=== PATIENT | female | born 1990 | race Caucasian/White ===

== ENCOUNTER 2017-09-05 07:09 | Day surgery (SDC) | payer OTHER ==
[2017-09-05] VITALS (10 sets, daily range): BP systolic 111–133; BP diastolic 59–73; PULSE 63–102; RESP 14–20; Ht 167.6 cm; Wt 73.0 kg
[~2017-09-05] VITALS: Ht 167.6 cm; Wt 73.0 kg
[~2017-09-05 07:09] MED LIST: ALBU18HF INHALATION; CEFAZOLIN 1 GM INJ ONE; CEFAZOLIN 2 GM/50 ML (PMX) 50 ML IVPB SCH; PRED20TA PO; SOD CHLORIDE 0.9% 1,000 ML IV SCH
[2017-09-05] MEDS ORDERED: ROCURONIUM 50 MG INJ ONE (08:19)
[2017-09-05] MEDS ORDERED: NEOSTIGMINE 3 MG/3 ML SYRINGE ONE (08:19)
[2017-09-05] MEDS ORDERED: FENTAnyl 50 MCG/ML VIAL ONE (08:19)
[2017-09-05] MEDS ORDERED: GLYCOPYRROLATE 0.4 MG INJ ONE (08:19)
[2017-09-05] MEDS ORDERED: MIDAZOLAM 1 MG/ML 2 ML INJ ONE (08:19)
[2017-09-05] MEDS ORDERED: DEXAMETHASONE 4 MG/ML 1 ML INJ ONE (08:19)
[2017-09-05] MEDS ORDERED: LIDOCAINE 2% (SDV) 5 ML INJ ONE (08:19)
[2017-09-05] MEDS ORDERED: PROPOFOL 20 ML ONE (08:19)
[2017-09-05] MEDS ORDERED: ONDANSETRON 4 MG INJ ONE (08:20)
[2017-09-05 08:23] LABS: BASOPHILS % 0.6 % (0.0-2.0); EOSINOPHILS # 0.1 10^3/ul (0.0-0.5); EOSINOPHILS % 1.9 % (0.0-7.0); HEMATOCRIT 39.4 % (37.0-47.0); HEMOGLOBIN 13.2 g/dl (12.0-16.0); LYMPHOCYTES # 2.1 10^3/ul (0.8-2.9); LYMPHOCYTES % 32.4 % (15.0-51.0); MEAN CORPUSCULAR HEMOGLOBIN 29.3 pg (29.0-33.0); MEAN CORPUSCULAR HGB CONC 33.5 g/dl (32.0-37.0); MEAN CORPUSCULAR VOLUME 87.6 fl (82.0-101.0); MEAN PLATELET VOLUME 11.5 fl (7.4-10.4); MONOCYTE # 0.7 10^3/ul (0.3-0.9); MONOCYTES % 10.5 % (0.0-11.0); NEUTROPHIL # 3.5 10^3/ul (1.6-7.5); NEUTROPHILS % 54.4 % (39.0-77.0); PLATELET COUNT 226 10^3/UL (140-415); RED CELL DISTRIBUTION WIDTH 13.4 % (11.5-14.5); WHITE BLOOD COUNT 6.4 10^3/ul (4.8-10.8)
[2017-09-05] MEDS ORDERED: SUGAMMADEX SODIUM 200 MG/2 ML VIAL IV ONE (08:23)
[2017-09-05] MEDS ORDERED: MIDAZOLAM 1 MG/ML 2 ML INJ IV PRN (08:30)
[2017-09-05] MEDS ORDERED: FENTAnyl 50 MCG/ML VIAL IV PRN (08:30)
[2017-09-05] MEDS ORDERED: HYDROmorphONE (0.2 MG/ML) 10ML SYG IV PRN ×3 (08:30)
[2017-09-05] MEDS ORDERED: ATROPINE 1 MG/10 ML SYRINGE IV PRN (08:30)
[2017-09-05] MEDS ORDERED: DIPHENHYDRAMINE 50 MG INJ IV PRN (08:30)
[2017-09-05] MEDS ORDERED: OXYCODONE/ACETAMINOPHEN (5/325) TAB PO PRN ×2 (08:30)
[2017-09-05] MEDS ORDERED: ONDANSETRON 4 MG INJ IV PRN (08:30)
[2017-09-05] MEDS ORDERED: EPHEDrine SULFATE 50 MG/5 ML SYG IV PRN (08:30)
[2017-09-05] MEDS ORDERED: LABETALOL HCL 20MG INJ IV PRN (08:30)
[2017-09-05] MEDS ORDERED: morphine (1 MG/ML) 10ML SYRINGE IV PRN ×3 (08:30)
[2017-09-05] MEDS ORDERED: MEPERIDINE 25 MG INJ IV PRN (08:30)
[2017-09-05] MEDS ORDERED: hydrALAzine 20 MG INJ IV PRN (08:30)
[2017-09-05 08:40] LABS: INR 0.97; PROTIME 12.9 Sec (12.2-14.2)
[2017-09-05 08:41] LABS: PARTIAL THROMBOPLASTIN TIME 32.2 Sec (25.0-35.0)
[2017-09-05 08:45] LABS: ALBUMIN 4.5 g/dl (3.3-4.9); ALBUMIN/GLOBULIN RATIO 1.25; BILIRUBIN,INDIRECT 0.2 mg/dl (0-1.1); BILIRUBIN,TOTAL 0.2 mg/dl (0.2-1.3); CALCIUM 8.9 mg/dl (8.4-10.2); CREATININE 0.76 mg/dl (0.44-1.00); POTASSIUM 4.2 mmol/L (3.5-5.1); TOTAL PROTEIN 8.1 g/dl (6.1-8.1)
[2017-09-05] MEDS ORDERED: BUPIVACAINE 0.5%/EPI (SDV) 30 ML INJ ONE (09:07)
[2017-09-05] MEDS ORDERED: EPHEDrine SULFATE 50 MG/5 ML SYG ONE (10:47)
--- NOTE | 2017-09-05 10:52 | SIPON ---
Date/Time of Note Date/Time of Note DATE: 09/05/17 TIME: 10:50 Operative Report Preoperative Diagnosis Large fibroadenoma left breast Postoperative Diagnosis Same Operation/Procedure Performed Left partial mastectomy Surgeon see signature line insurance underwriting assistant Dr Garnica Anesthesia: general Estimated blood loss: 10 - 50 ml's Transfusion Required none Specimen Left breast mass Grafts/Implants none Complications none RUI CHAMBERLAIN MD Sep 05, 2017 10:52
[2017-09-05] MEDS ORDERED: HYDROCODONE/APAP (7.5/325) TAB PO PRN (11:00)
[2017-09-05] MEDS: FENTAnyl 50 MCG/ML VIAL IV PRN ×2 (11:11→11:18)
--- NOTE | 2017-09-05 12:07 | OPR ---
DATE OF OPERATION: 09/05/2017 PREOPERATIVE DIAGNOSIS: Large fibroadenoma, left breast. POSTOPERATIVE DIAGNOSIS: Large fibroadenoma, left breast. PROCEDURE: Left partial mastectomy with resection of large fibroadenoma. ANESTHESIA: General. ANESTHESIOLOGIST: Earl Sierra MD WELT INSOLE CHANNELER: Dr. Garnica INDICATIONS FOR PROCEDURE: The patient is a 27-year-old female who presented with an enlarging mass at approximately the 12 to 2 o'clock location of the left breast adjacent to the nipple-areolar bor rex. Core biopsy confirmed fibroadenoma. She requested excision. She consented and was scheduled for surgery. DESCRIPTION OF PROCEDURE: The patient was brought to the operating theater, placed under general an esthesia. The left breast was prepped and draped in usual sterile fashion. A periareolar incision was made from approximately the 11 o'clock location to the 3 o'clock location. Subcutaneous tissue was dissected with cautery. The large mass was slightly removed from the nipple-areolar border a di stance approximately 2 to 3 cm. Therefore, dissection proceeded in the direction of the mass. The m ass was identified, it was multi-lobulated. With a gloved finger, it was enucleated, elevated and t ransected. It was removed and sent for permanent pathologic analysis. The wound was irrigated. Mi nimal bleeding was controlled with cautery. The skin incision was then reapproximated with 4-0 Vicr yl suture in subcuticular fashion and Dermabond was applied. Patient tolerated procedure well. Est imated blood loss 20 mL. There were no complications and the patient was transported in stable cond ition to the recovery room where circumferential compression dressing was applied. Dictated By: RUI RODRÍGUEZ/MARITZA Conf#: [id number] DID#: [id number]
== END 2017-09-05 12:45 | disposition home or self-care (01) ==
LOC: SDS 07:09
PROVIDERS: ATTEND Surgery Surgical Oncology
DX: D24.2 Benign neoplasm of left breast (principal)
CPT/HCPCS: 19120; 80053; 84703; 85025; 85610; 85730; 88307; J0690; J1100; J2250; J2405; J3010; Z7512; Z7610; J2710

== ENCOUNTER 2017-09-14 08:18 | Day surgery (SDC) | payer OTHER ==
[2017-09-14] VITALS (13 sets, daily range): BP systolic 98–126; BP diastolic 48–79; PULSE 60–90; RESP 13–22; Ht 167.6 cm; Wt 72.0 kg
[~2017-09-14] VITALS: Ht 167.6 cm; Wt 72.0 kg
--- NOTE | 2017-09-14 05:50 | PREOPHP ---
DATE OF ADMISSION: 09/14/2017 HISTORY OF PRESENT ILLNESS: A 27-year-old patient, who is going to be admitted for diagnostic arthroscopy of right knee, partial meniscectomy, possibly repair , plica band release, release, application of Dwyer dressing. This patient has been experiencing right knee pain for quite a while. Conservative treatment resulted in limited benefit to the patient, and patient has requested surgical intervention. PAST MEDICAL HISTORY: Unremarkable and noncontributory. MEDICATIONS: 1. Has been Sulindac. 2. Vitamin D3. 3. Postop, given ibuprofen and 4. Bactrim. PHYSICAL EXAMINATION: SKIN: Within normal limits. EENT: PERRLA. CARDIOVASCULAR: Normal sinus rhythm. S1, S2 normal. No murmur. No JVD. No peripheral edema. LUNGS: Clear. ABDOMEN: Soft, scaphoid. No organomegaly. No mass. Bowel sounds present. GENITOURINARY AND RECTAL: Not done and not pertinent to this admission. MUSCULOSKELETAL: Head and neck unremarkable. Upper extremities normal with normal neurological examination. Spine clear. Both lower extermities were normal except for right knee. There is a couple degrees of recurvatum present in both knees with minimal atrophy. Range of motion is symmetrical. There is marked tenderness over the medial, as well as the lateral tibiofemoral joint line in the right knee. There is tenderness over the patellofemoral joint line. Excursion of the patella is normal. There is slight AP plane laxity. NEUROLOGIC: Lower extremities seem to be intact. IMAGING: MRI of the right knee was read as multiseptated ganglion cyst in the posterior half of intercondylar notch. Small posterior cruciate ligament cyst. _ shows synovitis being present, somewhat small anterior cruciate ligament and a couple areas in both knees, seems there is incomplete attachment of the meniscus on the periphery. DIAGNOSES: 1. Patellar tendinitis, Ham strin quadricept disproportion. 2. Torn menisci. 3. 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 PLAN: treatment plan, alternatives, risks and benefits discussed. Patient understands possibility of complications such as infection, bleeding, nerve damage, vascular damage, possibility of deep venous thrombosis, pulmonary embolism, hypersensitivity from medication, and even . Patient understands ideal result may not be obtained depending on actual finding and unknown factors. Formal H and P is supposed to be done by PCP. Dictated By: RUDY JOHNSON/MARITZA Conf#: [id number] DID#: [id number] BRANDAN
[~2017-09-14 08:18] MED LIST changes: -CEFAZOLIN 1 GM INJ ONE; -CEFAZOLIN 2 GM/50 ML (PMX) 50 ML IVPB SCH; -SOD CHLORIDE 0.9% 1,000 ML IV SCH
[2017-09-14] MEDS ORDERED: CEFAZOLIN 1 GM/50 ML (PMX) 50 ML IVPB SCH (09:00)
[2017-09-14] MEDS ORDERED: EPINEPHrine 1 MG/ML 30 ML INJ ONE (10:23)
[2017-09-14] MEDS ORDERED: morphine SULFATE/PF (10 MG/10 ML) INJ ONE (10:23)
[2017-09-14] MEDS ORDERED: CEFAZOLIN 1 GM INJ ONE (10:29)
[2017-09-14] MEDS ORDERED: PROPOFOL 20 ML ONE (10:29)
[2017-09-14] MEDS ORDERED: ROCURONIUM 50 MG INJ ONE (10:29)
[2017-09-14] MEDS ORDERED: GLYCOPYRROLATE 0.4 MG INJ ONE (10:29)
[2017-09-14] MEDS ORDERED: NEOSTIGMINE 3 MG/3 ML SYRINGE ONE (10:29)
[2017-09-14] MEDS ORDERED: FENTAnyl 50 MCG/ML VIAL ONE (10:31)
[2017-09-14] MEDS ORDERED: MIDAZOLAM 1 MG/ML 2 ML INJ ONE (10:31)
[2017-09-14] MEDS ORDERED: DEXAMETHASONE 4 MG/ML 1 ML INJ ONE (10:32)
[2017-09-14] MEDS ORDERED: ONDANSETRON 4 MG INJ ONE (10:32)
[2017-09-14] MEDS ORDERED: DIPHENHYDRAMINE 50 MG INJ IV PRN (11:00)
[2017-09-14] MEDS ORDERED: LABETALOL HCL 20MG INJ IV PRN (11:00)
[2017-09-14] MEDS ORDERED: EPHEDrine SULFATE 50 MG/5 ML SYG IV PRN (11:00)
[2017-09-14] MEDS ORDERED: hydrALAzine 20 MG INJ IV PRN (11:00)
[2017-09-14] MEDS ORDERED: ONDANSETRON 4 MG INJ IV PRN (11:00)
[2017-09-14] MEDS ORDERED: FENTAnyl 50 MCG/ML VIAL IV PRN ×2 (11:00)
[2017-09-14] MEDS ORDERED: TRIMETHOBENZAMIDE 100 MG/ML VIAL IM PRN (11:00)
[2017-09-14] MEDS ORDERED: MEPERIDINE 25 MG INJ IV PRN (11:00)
[2017-09-14] MEDS ORDERED: HYDROmorphONE (0.2 MG/ML) 10ML SYG IV PRN ×3 (11:00)
[2017-09-14] MEDS ORDERED: IPRATROPIUM (NEB) 0.5 MG/2.5 ML AMP HHN PRN (11:00)
[2017-09-14] MEDS ORDERED: OXYCODONE/ACETAMINOPHEN (5/325) TAB PO PRN ×2 (11:00)
[2017-09-14] MEDS ORDERED: MIDAZOLAM 1 MG/ML 2 ML INJ IV PRN (11:00)
[2017-09-14] MEDS ORDERED: ALBUTEROL 0.083% (NEB) 2.5 MG/3 ML AMP HHN PRN (11:00)
--- NOTE | 2017-09-14 11:55 | SIPON ---
Date/Time of Note Date/Time of Note DATE: 09/14/17 TIME: 11:50 Operative Report Preoperative Diagnosis Right knee torn Meniscus and plica syndrom Postoperative Diagnosis The same Operation/Procedure Performed Diagnostic scope partial lateral menisectomy and lateral meniscal repair plus plica band release and muñoz dressing Surgeon Rudy Chowdhury MD library technical assistant None Anesthesia: general Estimated blood loss: none Transfusion Required none Specimen none Grafts/Implants none Complications none RUDY CHOWDHURY MD Sep 14, 2017 11:55
[2017-09-14] MEDS ORDERED: HYDROCODONE/APAP (5/325) TAB PO PRN ×2 (12:00)
[2017-09-14] MEDS: FENTAnyl 50 MCG/ML VIAL IV PRN ×2 (12:20→12:21)
--- NOTE | 2017-09-14 12:43 | OPR ---
DATE OF OPERATION: PREOPERATIVE DIAGNOSIS: Torn meniscus, plica band syndrome, right knee. POSTOPERATIVE DIAGNOSIS: Torn meniscus, plica band syndrome, right knee. PROCEDURE: Diagnostic arthroscopy, partial lateral meniscectomy, lateral meniscal repair, plica band release, application of Dwyer dressing, right knee. ANESTHESIA: General by Dr. Moreno. BLEEDING: Minimal. COMPLICATIONS: None. OPERATIVE PROCEDURE: The patient was transferred to the operating room and placed on the table in supine position and general anesthesia was induced, a couple of grams of Ancef was given IV. Right knee was prepped and draped in the routine fashion. Landmarks were marked to regular 2 anterior portals, 1 medial and 1 lateral to the patellar tendon. Operative arthroscopy was commenced. Examination of suprapatellar pouch indicated the medial plica band extending to the gutter. Patella was engaging at 35 degree in trochlear groove and shows minimal fibrillation. Going to medial compartment, the articular surface was good and meniscus was intact, slightly thinned out in the posterior 1/3. There was no synovitis present. ACL was intact and shows good vascularity. Lateral compartment indicated some fibrillation on the articular surface anteriorly and the meniscus had a flap tear at the root which partial lateral meniscectomy was done. The posterior third and middle third was intact, however, the anterior third of the meniscus shows a considerable amount the stretching, as a matter of fact, with probe I could bring it pretty much within 0.5 cm of posterior section. Therefore, anterior horn was repaired with meniscal mender from within and the suture was buried under the skin through a small incision. Plica band was also released with Arthrocare Bovie. Knee was evacuated from debris with copious amounts of saline irrigation. Portal was closed with benzoin and Steri-Strips and 10 mg Duramorph mixed with 10 mL of injectable saline was injected into the knee. Sterile Dwyer dressing was applied. Procedure was terminated. General anesthesia was stopped. Patient was taken to recovery room in good and stable condition. Dictated By: RUDY JOHNSON/MARITZA Conf#: [id number] DID#: [id number] BRANDAN
== END 2017-09-14 14:03 | disposition home or self-care (01) ==
LOC: SDS 08:18
PROVIDERS: ATTEND Internal Medicine Endocrinology, Diabetes & Metabolism
DX: S83.281A Other tear of lateral meniscus, current injury, right knee, initial encounter (principal); M67.51 Plica syndrome, right knee; X58.XXXA Exposure to other specified factors, initial encounter; Y93.89 Activity, other specified; Y92.89 Other specified places as the place of occurrence of the external cause
CPT/HCPCS: 84703; C1713; J0171; J0690; J1100; J2250; J2274; J2405; J2710; J3010